=== PATIENT | female | born 1990 | race American Indian/Alaskan Native ===

== ENCOUNTER 2018-05-12 12:10 | Emergency (ER) | payer MEDICAID ==
[2018-05-12] MEDS ORDERED: CARAFATE PO ONE (14:34)
[2018-05-12 15:21] LABS: Basophils % (Auto) 0.5 % (0.0-1.8); Eosinophils % (Auto) 0.4 % (0.0-4.3); Hematocrit 38.7 % (30.3-42.9); Hemoglobin 12.9 gm/dl (10.1-14.3); Lymphocytes # (Auto) 2.1 K/mm3 (1.2-5.4); Lymphocytes % (Auto) 41.9 % (13.4-35.0); Mean Corpuscular HGB Conc 33 % (30-34); Mean Corpuscular Hemoglobin 32 pg (28-32); Mean Corpuscular Volume 95 fl (79-97); Monocytes # (Auto) 0.6 K/mm3 (0.0-0.8); Monocytes % (Auto) 12.4 % (0.0-7.3); Platelet Count 173 K/mm3 (140-440); Red Blood Count 4.06 M/mm3 (3.65-5.03)
[2018-05-12 15:43] LABS: Alanine Aminotransferase 11 units/L (7-56); Albumin 4.4 g/dL (3.9-5); BUN/Creatinine Ratio 18; Blood Urea Nitrogen 11 mg/dL (7-17); Calcium 9.3 mg/dL (8.4-10.2); Hemolysis Index 5; Lipase 18 units/L (13-60)
--- NOTE | 2018-05-12 16:18 | Emergency Department Report ---
ED General Adult HPI - General Chief complaint: Abdominal Pain Stated complaint: CHEST PAIN/HEARTBURN Time Seen by Provider: 05/12/18 14:12 Source: patient Mode of arrival: Ambulatory Limitations: No Limitations - History of Present Illness Initial comments: Patient presents to the emergency department with a chief complaint of GERD. Patient states she has a burning sensation from her stomach into her chest that has been present since . Patient states she has a history of GERD but has not had any treatment for. Patient denies any abdominal pain, headache, nausea or vomiting. -: Gradual Location: chest Radiation: non-radiation Severity scale (0 -10): 3 Quality: burning Consistency: constant Improves with: none Worsens with: none Associated Symptoms: denies other symptoms Treatments Prior to Arrival: none - Related Data Home Medications Medication Instructions Recorded Confirmed Last Taken Vits96/Iron Fum/Folic 1 tab PO DAILY 01/16/14 01/16/14 01/15/14 09:00 [ Tablet] 1 Previous Rx's Medication Instructions Recorded Last Taken Type Esomeprazole Magnesium [NexIUM] 40 mg PO QDAY #30 capsule.dr 05/12/18 Unknown Rx Sucralfate [Carafate] 1 gm PO Q8HR PRN #180 oral.susp 05/12/18 Unknown Rx Allergies Allergy/AdvReac Type Severity Reaction Status Date / Time No Known Allergies Allergy Unverified 01/16/14 01:38 ED Review of Systems ROS: Stated complaint: CHEST PAIN/HEARTBURN Other details as noted in HPI Comment: All other systems reviewed and negative Constitutional: denies: chills, fever Eyes: denies: eye pain, eye discharge, vision change ENT: denies: ear pain, throat pain Respiratory: denies: cough, shortness of breath, wheezing Cardiovascular: chest pain. denies: palpitations Endocrine: no symptoms reported Gastrointestinal: denies: abdominal pain, nausea, diarrhea Genitourinary: denies: urgency, dysuria, discharge Musculoskeletal: denies: back pain, joint swelling, arthralgia Skin: denies: rash, lesions Neurological: denies: headache, weakness, paresthesias Psychiatric: denies: anxiety, depression Hematological/Lymphatic: denies: easy bleeding, easy bruising ED Past Medical Hx - Past Medical History Hx Hypertension: No Hx Diabetes: No Hx Deep Vein Thrombosis: No Hx GERD: Yes Hx Renal Disease: No Hx Sickle Cell Disease: No Hx Seizures: No Hx Asthma: No Hx HIV: No - Social History Smoking Status: Current Every Day Smoker Substance Use Type: None - Medications Home Medications: Home Medications Medication Instructions Recorded Confirmed Last Taken Type Vits96/Iron Fum/Folic 1 tab PO DAILY 01/16/14 01/16/14 01/15/14 09:00 History [ Tablet] 1 Esomeprazole Magnesium [NexIUM] 40 mg PO QDAY #30 capsule.dr 05/12/18 Unknown Rx Sucralfate [Carafate] 1 gm PO Q8HR PRN #180 oral.susp 05/12/18 Unknown Rx ED Physical Exam - General Limitations: No Limitations General appearance: alert, in no apparent distress - Head Head exam: Present: atraumatic, normocephalic - Eye Eye exam: Present: normal appearance, PERRL, EOMI - ENT ENT exam: Present: mucous membranes moist - Neck Neck exam: Present: normal inspection - Respiratory Respiratory exam: Present: normal lung sounds bilaterally. Absent: respiratory distress, wheezes, rales, rhonchi, chest wall tenderness - Cardiovascular Cardiovascular Exam: Present: regular rate, normal rhythm. Absent: systolic murmur, diastolic murmur, rubs, gallop - GI/Abdominal GI/Abdominal exam: Present: soft, normal bowel sounds. Absent: distended, tenderness - Extremities Exam Extremities exam: Present: normal inspection - Back Exam Back exam: Present: normal inspection - Neurological Exam Neurological exam: Present: alert, oriented X3, CN II-XII intact. Absent: motor sensory deficit - Psychiatric Psychiatric exam: Present: normal affect, normal mood - Skin Skin exam: Present: warm, dry, intact, normal color. Absent: rash ED Course Vital Signs 05/12/18 12:19 Temperature 99.2 F Pulse Rate 64 Respiratory 18 Rate Blood Pressure 117/85 O2 Sat by Pulse 100 Oximetry ED Medical Decision Making - Lab Data Result diagrams: 05/12/18 15:03 05/12/18 15:03 - EKG Data EKG shows normal: sinus rhythm - EKG Data 05/12/18 17:46 EKG was done on 05/12/2018 Time 1642 A sinus rhythm with a rate of 64 Normal axis and normal intervals No ST elevation Critical care attestation.: If time is entered above; I have spent that time in minutes in the direct care of this critically ill patient, excluding procedure time. ED Disposition Clinical Impression: Nonspecific chest pain, GERD (gastroesophageal reflux disease) Disposition: - TO HOME OR SELFCARE Is pt being admited?: No Does the pt Need Aspirin: No Condition: Stable Instructions: Chest Pain (ED), Gastroesophageal Reflux Disease (ED) Prescriptions: Esomeprazole Magnesium [NexIUM] 40 mg PO QDAY #30 capsule. Sucralfate [Carafate] 1 gm PO Q8HR PRN #180 oral.susp PRN Reason: pain Referrals: PRIMARY CAREMD [Primary Care Provider] - 3-5 Days [facility] [Provider Group] - 3-5 Days JODI MURRAY MD [Staff Physician] - 3-5 Days Time of Disposition: 17:49
[2018-05-12 18:08] VITALS: BP 128/84
--- NOTE | 2018-05-12 18:23 | XRay Report ---
FINAL REPORT EXAM: XR CHEST 1V AP HISTORY: chest pain TECHNIQUE: AP portable view of the chest. PRIORS: None. FINDINGS: The cardiomediastinal silhouette appears normal. The lungs are clear. There are gas distended loops of bowel under the diaphragm IMPRESSION: No evidence of acute cardiopulmonary disease. Gas distended loops of bowel. Clinical correlation required
== END 2018-05-12 18:19 | disposition home or self-care (01) ==
LOC: ED 12:10
DX: R07.89 Other chest pain (principal); K21.9 Gastro-esophageal reflux disease without esophagitis; F17.200 Nicotine dependence, unspecified, uncomplicated
CPT/HCPCS: 36415; 71045; 80053; 83690; 84484; 85025; 93005; 93010; 99284